=== PATIENT | male | born 2000 | race African-American/Black ===

== ENCOUNTER 2022-12-18 08:22 | Emergency (ER) | payer MEDICAID, OTHER ==
[~2022-12-18] VITALS: Ht 177.8 cm; Wt 108.9 kg
[2022-12-18 08:40] VITALS: O2SAT 98
[2022-12-18 09:01] LABS: BASOPHILS % 0.7 % (0.0-2.0); EOSINOPHILS % 3.5 % (0.0-5.0); LYMPHOCYTES % 34.6 % (20.0-50.0); MEAN CORPUSCULAR HEMOGLOBIN 26.7 pg (28.0-32.0); MEAN PLATELET VOLUME 8.1 fl (7.4-10.4); MONOCYTES % 7.2 % (2.0-8.0); PLATELET 221 x1000/uL (130-400); RED BLOOD CELL COUNT 5.25 mill/uL (4.7-6.1); RED CELL DISTRIBUTION WIDTH 12.9 % (11.6-14.6)
[2022-12-18 09:09] LABS: CHLORIDE 110 mEq/L (98-107)
[2022-12-18 10:05] LABS: PARTIAL THROMBOPLASTIN TIME 26.5 sec (23.4-31.0); PROTHROMBIN TIME 10.5 sec (9.6-11.0)
[2022-12-18] MEDS ORDERED: OXYM30SP26 BOTHNSTRLS (10:36)
[2022-12-18 10:57] VITALS: BP 127/76; PULSE 68; RESP 16; TEMP 97.5
== END 2022-12-18 10:58 | disposition home or self-care (01) ==
LOC: ER 08:22
DX: R04.0 Epistaxis (principal)
CPT/HCPCS: 36415; 71045; 80053; 85025; 99284